=== PATIENT | female | born 1980 | race Caucasian/White ===

== ENCOUNTER 2018-01-13 21:08 | Emergency (ER) | payer SELFPAY ==
[2018-01-13 21:22] VITALS: BP 126/70; PULSE 104; TEMP 98.9; BMI 27.4
[2018-01-13 22:09] LABS: BASO % 0.7 % (0-2.0); HEMATOCRIT 26.2 % (32.4-45.2); HEMOGLOBIN 8.1 GM/dL (10.7-15.3); LYMPH % 7.8 % (8-40); MCH 21.1 pg (25.7-33.7); MCHC 30.9 g/dl (32.0-36.0); MEAN CELL VOLUME 68.1 fl (80-96); MEAN PLT VOLUME 9.1 fl (7.5-11.1); MONO % 5.4 % (3.8-10.2); NEUT % 85.1 % (42.8-82.8); PLATELET COUNT 323 K/MM3 (134-434); RBC 3.85 M/mm3 (3.60-5.2); RDW 20.7 % (11.6-15.6); WHITE BLOOD COUNT 13.1 K/mm3 (4.0-10.0)
--- NOTE | 2018-01-13 22:11 | PDOC ---
History of Present Illness - General Chief Complaint: Pain Stated Complaint: ABD PAIN, BACK PAIN, LT LEG PAIN Time Seen by Provider: 01/13/18 22:10 - History of Present Illness Initial Comments: 37 year old female with female visiting from the [place] with history of uterine fibroids presenting with severe abdominal and pelvic pain. Patient states that she had vaginal bleeding last week for which her OBGyn gave her an injection that she doesn't know the name of and vitamin K. Her bleeding was controlled since then but her pelvic/ abdominal pain has continued. Describes the pain as sharp, crampy, and consistently present but occasionally worse. Denies any nausea, vomiting, fevers, chills, diarrhea, SOB, chest pain, or other symptoms. 01/14/18 01:31 Past History - Past Medical History Allergies/Adverse Reactions: Allergies Allergy/AdvReac Type Severity Reaction Status Date / Time No Known Allergies Allergy Verified 01/13/18 21:22 Home Medications: Ambulatory Orders Tramadol HCl 50 mg PO TID #14 tablet MDD 3 01/14/18 COPD: No - Suicide/Smoking/Psychosocial Hx Smoking History: Never smoked Review of Systems - Review of Systems Constitutional: No: Chills, Diaphoresis, Fever HEENTM: No: Tearing, Recent change in vision, Double Vision *Physical Exam - Vital Signs Last Vital Signs Temp Pulse Resp BP Pulse Ox 98.9 F 104 H 18 126/70 99 01/13/18 21:19 01/13/18 21:19 01/13/18 21:19 01/13/18 21:19 01/13/18 21:19 ED Treatment Course - LABORATORY CBC & Chemistry Diagram: 01/13/18 21:59 01/13/18 21:59 *DC/Admit/Observation/Transfer Diagnosis at time of Disposition: Pelvic pain, Leiomyoma - Discharge Dispostion Disposition: HOME Condition at time of disposition: Improved Decision to Admit order: No - Prescriptions Prescriptions: Tramadol HCl 50 mg PO TID #14 tablet MDD 3 - Referrals Referrals: Jordon Gan MD [Staff Physician] - - Patient Instructions Printed Discharge Instructions: DI for Myomectomy, DI for Uterine Fibroids Additional Instructions: You have very large fibroids in your uterus. They may require surgery to be removed. Please follow up with your OBGyn doctor within one week. Please return to the ED if you have any new or worsening symptoms. - Post Discharge Activity
[2018-01-13 22:13] LABS: URINE APPEARANCE CLEAR; URINE BILIRUBIN NEGATIVE (<2.0 mg/dL); URINE COLOR LTYELLOW; URINE GLUCOSE (UA) NEGATIVE (NEGATIVE); URINE KETONE TRACE (NEGATIVE); URINE LEUK ESTERASE NEGATIVE (NEGATIVE); URINE NITRITE NEGATIVE (NEGATIVE); URINE PROTEIN NEGATIVE (NEGATIVE); URINE UROBILINOGEN NEGATIVE mg/dL (0.2-1.0)
[2018-01-13 22:22] LABS: EPI CELLS RARE /HPF (FEW); URINE MUCUS RARE
[2018-01-13 22:34] LABS: ALBUMIN 3.7 g/dl (3.4-5.0); ALK PHOS 82 U/L (45-117); ANION GAP 12 MMOL/L (8-16); BILIRUBIN,TOTAL 0.3 mg/dL (0.2-1); BLOOD UREA NITROGEN 5 mg/dL (7-18); CALCIUM 9.2 mg/dL (8.5-10.1); CHLORIDE 103 mmol/L (98-107); CO2 23 mmol/L (21-32); CREATININE 0.8 mg/dL (0.55-1.3); GLUCOSE,RANDOM 103 mg/dL (74-106); POTASSIUM 3.7 mmol/L (3.5-5.1); SGOT/AST 22 U/L (15-37); SGPT/ALT 19 U/L (13-61); SODIUM 137 mmol/L (136-145); TOT PROT 7.8 g/dl (6.4-8.2)
[2018-01-13 22:42] LABS: ANISOCYTOSIS 2+; PLATELET ESTIMATE ADEQUATE
--- NOTE | 2018-01-13 22:58 | PDOC ---
Attending Attestation - HPI HPI: 01/13/18 22:58 The patient is a 37 year old female, with a significant past medical history of fibroids (diagnosed 6 years ago), who presents to the emergency department with , lower abdominal pain radiating to her back and down the left leg. As per patient, she was recently in [place] when her fibroids were bleeding significantly and received Vitamin K and an unknown injection. <Wendy Marcelo - Last Filed: 01/13/18 22:58> - Resident Resident Name: Sully Ortiz - ED Attending Attestation I have performed the following: I have examined & evaluated the patient, The case was reviewed & discussed with the resident, I agree w/resident's findings & plan, Exceptions are as noted - Physicial Exam PE: 01/14/18 00:36 Patient is awake and alert, nontoxic-appearing, afebrile Normocephalic, atraumatic PERRLA, EOMI CTA Abdomen is soft, soft tissue masses palpated with the fundus extending approximately 6 cm above the umbilicus, bowel sounds are appreciated in the periphery; there is no guarding or rebound - Medical Decision Making 01/14/18 00:37 Patient is a 37-year-old female who presents with lower abdominal pain and a soft tissue mass with the fundus extending above the umbilicus. I suspect an enlarged fibroid uterus. Will obtain an ultrasound. Will discharge with OB follow-up. 01/14/18 01:25 US shows large fibroid uterus. 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 <Christian Hudson - Last Filed: 01/14/18 01:25> Attestations - Attestations 01/13/18 22:59 Documentation prepared by Wendy Marcelo, acting as medical device engineer for Christian Hudson MD. <Wendy Marcelo - Last Filed: 01/13/18 22:58>
[2018-01-13] MEDS ORDERED: KETOROLAC TROMETHAMINE 30 MG/1 ML VIAL ONE (23:17)
[2018-01-13] MEDS ORDERED: KETOROLAC TROMETHAMINE 15 MG/ML VIAL IVPUSH ONE (23:17)
== END 2018-01-14 02:20 | disposition home or self-care (01) ==
LOC: EDBD 21:08 → JER 21:08
PROC: 3E0333Z Introduction of Anti-inflammatory into Peripheral Vein, Percutaneous Approach (ICD-10-PCS; principal; 2018-01-13)
DX: D25.9 Leiomyoma of uterus, unspecified (principal); R10.2 Pelvic and perineal pain
CPT/HCPCS: 36415; 76856-TC; 80053; 81003; 81015; 84703; 85025; 87086; 87491; 87591; 99283-25